=== PATIENT | female | born 1945 | race Caucasian/White ===

== ENCOUNTER 2018-03-01 22:49 | Emergency (ER) | payer OTHER, MEDICAID ==
[~2018-03-01] VITALS: Ht 154.9 cm; Wt 59.0 kg
[~2018-03-01 22:49] MED LIST: ALBUTEROL2.5 MG/31 IN; ALPRAZOLAM0.5 MG PO; AMITRIPTYLIN25 MG OR; AMITRIPTYLIN25 MG PO; AUGMENTIN875TAB PO; BENAZEPRIL5 M1 OR; BENAZEPRIL5 MG PO; BUSPIRONE15 MG PO; CIPROFLOXACN500 MG PO; DALMANE15 MG OR; DALMANE15 MG PO; DUONEB IN; FLEXERIL OR; HOME NEBULIZER; LEVOTHYROXIN25 MC1 PO; LEVOTHYROXIN25 MCG PO; LISINOPRIL/HYDR1 TA1 OR; LOPRESSOR 550 MG/TAB PO; LOPRESSOR50 MG PO; LORTAB 5 PO; LORTAB5 PO; MEDDOSEPAK PO; METOPROL TAR50 MG OR; NICOTINE T21 MG/PATC TD; PAROXETINE10 MG PO; PERCOCET 5/325M1 TAB PO; PLAVIX75 MG PO; PREDNISONE20 MG PO; PROAIR HFA IN; PYRIDIUM200 MG PO; RESTORIL15 MG PO; SIMVASTATIN20 MG OR; SIMVASTATIN20 MG PO; ULTRAM50 M1 OR; ULTRAM50 M1 PO; XANAX XR0.5 MG OR; ZITHROMAX250 MG PO; ZOCOR20 MG PO; ZPAK PO
[2018-03-01 23:34] LABS: BASO% 0 % (0-3); EOS% 0 % (0-8); HEMATOCRIT 44.7 % (37.0-47.0); HEMOGLOBIN 15.1 g/dl (12.0-16.0); IMMATURE GRANULOCYTES 3.7 % (0.0-1.0); LYMPH% 3 % (15-41); MEAN CELL VOLUME 93.5 fL CALC (80.0-100.0); MEAN CORPUSCULAR HGB 31.6 pG CALC (26.0-32.0); MEAN CORPUSCULAR HGB CONC 33.8 g/L CALC (32.0-36.0); MONO% 6 % (2-13); NEUT# 23.16 thou/uL (2.00-7.15); PLATELET COUNT 352 thou/uL (130-400); RED BLOOD COUNT 4.78 mill/uL (4.20-5.60); RED CELL DISTRI WIDTH 13.8 % (11.5-15.5)
[2018-03-01 23:42] LABS: MANUAL DIFFERENTIAL YES; NEUT% 100 % (42-76)
[2018-03-01 23:47] LABS: BILIRUBIN, TOTAL 0.5 mg/dL (0.0-1.4); TOTAL PROTEIN 6.6 g/dL (6.3-8.2)
[2018-03-01 23:50] LABS: ACT PARTIAL THROMBO TIME 28.3 SECONDS (20.0-32.5); PROTHROMBIN TIME 11.4 SECONDS (9.0-12.5)
[2018-03-01] MEDS ORDERED: LISINOPRIL20 MG PO (23:51)
[2018-03-01] MEDS ORDERED: FUROSEMIDE20 MG PO (23:52)
[2018-03-01] MEDS ORDERED: LORTAB 1010 MG PO (23:53)
[2018-03-01 23:58] LABS: ALBUMIN 3.3 g/dL (3.2-5.0); CREATININE 2.5 mg/dL (0.5-1.0); POTASSIUM 4.2 mmol/l (3.5-5.1)
[2018-03-02] LABS: BAND 4 % (0-8)
[2018-03-02 00:35] LABS: URINE BLOOD DIPSTICK NEGATIVE (NEGATIVE); URINE COLOR YELLOW; URINE GLUCOSE - DIPSTICK NEGATIVE (NEGATIVE); URINE KETONE NEGATIVE (NEGATIVE); URINE NITRITE - DIPSTICK NEGATIVE (Negative); URINE PROTEIN - DIPSTICK TRACE mg/dL (NEG-TRACE); URINE SPECIFIC GRAVITY 1.025; URINE UROBILINOGEN - DIPSTICK 0.2 E.U./dL (0.2)
[2018-03-02 00:37] LABS: URINE BILIRUBIN - DIPSTICK NEGATIVE (NEGATIVE); URINE CLARITY CLOUDY
[2018-03-02 00:42] LABS: BARBITURATES NEGATIVE (NEGATIVE); COCAINE NEGATIVE (NEGATIVE); METHADONE NEGATIVE (NEGATIVE); TETRAHYDROCANNABIONOL NEGATIVE (NEGATIVE); TRICYLIC ANTIDEPRESSANTS POSITIVE (NEGATIVE); URINE AMORPH SEDIMENT MANY hpf (NONE-FEW); URINE BACTERIA FEW hpf; URINE FINE GRAN CAST FEW lpf; URINE HYALINE CAST FEW lpf (NONE-RARE); URINE LEUK ESTERASE NEGATIVE (NEGATIVE); URINE MUCUS MANY hpf (NONE-FEW); URINE RBC 0-2 RBC/hpf (0-5); URINE SQUAMOUS EPITHELIAL CELL MODERATE EPI/hpf (0-FEW)
[2018-03-02 00:43] LABS: OXCYCODONE POSITIVE (NEGATIVE)
[2018-03-02 02:08] VITALS: BP 144/67
== END 2018-03-02 02:12 | disposition short-term general hospital (02) | DRG 379 ==
LOC: ED 22:49
PROVIDERS: Family Medicine
PROC: 0T9B70Z Drainage of Bladder with Drainage Device, Via Natural or Artificial Opening (ICD-10-PCS; principal; 2018-03-02)
PROC: 0BH17EZ Insertion of Endotracheal Airway into Trachea, Via Natural or Artificial Opening (ICD-10-PCS; 2018-03-02)
PROC: 05HM33Z Insertion of Infusion Device into Right Internal Jugular Vein, Percutaneous Approach (ICD-10-PCS; 2018-03-02)
DX: K92.2 Gastrointestinal hemorrhage, unspecified (principal); K92.1 Melena; F17.200 Nicotine dependence, unspecified, uncomplicated; N28.9 Disorder of kidney and ureter, unspecified; I10 Essential (primary) hypertension; R10.13 Epigastric pain; R11.2 Nausea with vomiting, unspecified; R19.7 Diarrhea, unspecified; I25.2 Old myocardial infarction; R00.0 Tachycardia, unspecified
CPT/HCPCS: S0164

== ENCOUNTER 2018-04-05 21:45 | Emergency (ER) | payer OTHER, MEDICAID ==
[~2018-04-05] VITALS: Ht 154.9 cm; Wt 45.0 kg
[~2018-04-05 21:45] MED LIST changes: +FUROSEMIDE20 MG PO; +LISINOPRIL20 MG PO; +LORTAB 1010 MG PO
[2018-04-05 22:52] LABS: IMMATURE GRANULOCYTES 0.4 % (0.0-1.0); MEAN CELL VOLUME 92.3 fL CALC (80.0-100.0); MEAN CORPUSCULAR HGB 29.8 pG CALC (26.0-32.0); MEAN CORPUSCULAR HGB CONC 32.2 g/L CALC (32.0-36.0); NEUT# 8.29 thou/uL (2.00-7.15); RED BLOOD COUNT 3.66 mill/uL (4.20-5.60); RED CELL DISTRI WIDTH 13.9 % (11.5-15.5)
[2018-04-05 22:53] LABS: HEMATOCRIT 33.8 % (37.0-47.0); HEMOGLOBIN 10.9 g/dl (12.0-16.0)
[2018-04-05 23:06] LABS: ALBUMIN 3.1 g/dL (3.2-5.0); ALKALINE PHOSPHATASE 115 u/l (38-126); AMYLASE < 30 u/l (30-110); BILIRUBIN, TOTAL 0.2 mg/dL (0.0-1.4); BUN 13 mg/dL (8-23); CARBON DIOXIDE 22 mmol/l (22-30); LIPASE 23 u/l (23-300); SGPT/ALT 114 u/l (11-66); SODIUM 139 mmol/l (137-146); TOTAL PROTEIN 7.3 g/dL (6.3-8.2)
[2018-04-05 23:09] LABS: ANION GAP 14 (6-22 (CALC)); BUN/CREATININE RATIO 22 (12-20 (CALC)); CHLORIDE 106 mmol/l (95-108); CREATININE 0.6 mg/dL (0.5-1.0); GFR > 60 ML/MIN (>=60 (CALC)); GFR FOR AFR.AMER. > 60 ML/MIN (>=60 (CALC)); POTASSIUM 3.1 mmol/l (3.5-5.1); SGOT/AST 39 u/l (9-36)
[2018-04-06 01:07] LABS: URINE BILIRUBIN - DIPSTICK NEGATIVE (NEGATIVE); URINE BLOOD DIPSTICK MODERATE (NEGATIVE); URINE CLARITY CLOUDY; URINE COLOR YELLOW; URINE GLUCOSE - DIPSTICK NEGATIVE (NEGATIVE); URINE KETONE NEGATIVE (NEGATIVE); URINE LEUK ESTERASE LARGE (NEGATIVE); URINE NITRITE - DIPSTICK NEGATIVE (Negative); URINE PROTEIN - DIPSTICK 30 mg/dL (NEG-TRACE); URINE SPECIFIC GRAVITY <=1.005; URINE UROBILINOGEN - DIPSTICK 0.2 E.U./dL (0.2)
[2018-04-06 01:15] LABS: URINE RBC 0-2 RBC/hpf (0-5)
[2018-04-06 01:16] LABS: URINE BACTERIA FEW hpf; URINE WBC TNTC WBC/hpf (0-5)
[2018-04-06 02:56] VITALS: BP 132/61
== END 2018-04-06 02:57 | disposition short-term general hospital (02) | DRG 690 ==
LOC: ED 21:45
PROVIDERS: Emergency Medicine
PROC: 0T9B70Z Drainage of Bladder with Drainage Device, Via Natural or Artificial Opening (ICD-10-PCS; principal; 2018-04-06)
DX: N13.6 Pyonephrosis (principal); D72.829 Elevated white blood cell count, unspecified; R10.84 Generalized abdominal pain; I10 Essential (primary) hypertension; E03.9 Hypothyroidism, unspecified; F17.210 Nicotine dependence, cigarettes, uncomplicated; I25.2 Old myocardial infarction; Z87.442 Personal history of urinary calculi
CPT/HCPCS: S0164

== ENCOUNTER 2018-05-04 11:38 | Inpatient (IN) | payer OTHER, MEDICAID ==
[~2018-05-04] VITALS: Ht 154.9 cm; Wt 44.9 kg
[2018-05-04 12:25] LABS: HEMATOCRIT 33.9 % (37.0-47.0); HEMOGLOBIN 10.6 g/dl (12.0-16.0); IMMATURE GRANULOCYTES 0.6 % (0.0-1.0); MEAN CORPUSCULAR HGB 29.7 pG CALC (26.0-32.0); MEAN CORPUSCULAR HGB CONC 31.3 g/L CALC (32.0-36.0); NEUT# 7.44 thou/uL (2.00-7.15); RED BLOOD COUNT 3.57 mill/uL (4.20-5.60); RED CELL DISTRI WIDTH 21.4 % (11.5-15.5)
[2018-05-04 12:45] LABS: ALBUMIN 3.6 g/dL (3.2-5.0); ALKALINE PHOSPHATASE 126 u/l (38-126); ANION GAP 18 (6-22 (CALC)); BILIRUBIN, TOTAL 0.3 mg/dL (0.0-1.4); BUN 14 mg/dL (8-23); BUN/CREATININE RATIO 17 (12-20 (CALC)); CARBON DIOXIDE 19 mmol/l (22-30); CHLORIDE 111 mmol/l (95-108); CREATININE 0.8 mg/dL (0.5-1.0); GFR > 60 ML/MIN (>=60 (CALC)); GFR FOR AFR.AMER. > 60 ML/MIN (>=60 (CALC)); LIPASE 97 u/l (23-300); SGOT/AST 23 u/l (9-36); SGPT/ALT 35 u/l (11-66); SODIUM 144 mmol/l (137-146)
[2018-05-04 12:50] LABS: POTASSIUM 4.1 mmol/l (3.5-5.1)
[2018-05-04 16:22] LABS: URINE BILIRUBIN - DIPSTICK NEGATIVE (NEGATIVE); URINE BLOOD DIPSTICK MODERATE (NEGATIVE); URINE COLOR YELLOW; URINE GLUCOSE - DIPSTICK NEGATIVE (NEGATIVE); URINE KETONE NEGATIVE (NEGATIVE); URINE NITRITE - DIPSTICK NEGATIVE (Negative); URINE PROTEIN - DIPSTICK NEGATIVE (NEG-TRACE); URINE UROBILINOGEN - DIPSTICK 0.2 E.U./dL (0.2)
[2018-05-04 16:24] LABS: URINE CLARITY SL CLOUDY; URINE LEUK ESTERASE LARGE (NEGATIVE)
[2018-05-04 16:28] VITALS: BP 169/77
[2018-05-04 16:28] LABS: URINE SQUAMOUS EPITHELIAL CELL FEW EPI/hpf (0-FEW); URINE WBC >100 WBC/hpf (0-5)
[2018-05-04 18:16] LABS: C. DIFFICILE TOXIN A&B NEGATIVE (NEGATIVE)
[2018-05-04 19:05] VITALS: BP 197/63
[2018-05-04 20:10] VITALS: BP 112/54
[2018-05-05] VITALS (10 sets, daily range): BP systolic 133–170; BP diastolic 59–85
[2018-05-05 05:39] LABS: HEMATOCRIT 30.9 % (37.0-47.0); HEMOGLOBIN 9.5 g/dl (12.0-16.0); IMMATURE GRANULOCYTES 0.5 % (0.0-1.0); MEAN CELL VOLUME 97.5 fL CALC (80.0-100.0); MEAN CORPUSCULAR HGB CONC 30.7 g/L CALC (32.0-36.0); NEUT# 5.09 thou/uL (2.00-7.15); RED BLOOD COUNT 3.17 mill/uL (4.20-5.60); RED CELL DISTRI WIDTH 21.4 % (11.5-15.5)
[2018-05-05 05:52] LABS: HDL CHOLESTEROL 42 mg/dL (>=40); TOTAL TRIGLYCERIDES 111 mg/dl (30-149); VLDL CHOLESTROL 22 mg/dl (0-48 (CALC))
[2018-05-05 06:01] LABS: ANION GAP 14 (6-22 (CALC)); BUN 8 mg/dL (8-23); BUN/CREATININE RATIO 13 (12-20 (CALC)); CARBON DIOXIDE 16 mmol/l (22-30); CHLORIDE 116 mmol/l (95-108); CREATININE 0.6 mg/dL (0.5-1.0); GFR > 60 ML/MIN (>=60 (CALC)); GFR FOR AFR.AMER. > 60 ML/MIN (>=60 (CALC)); MAGNESIUM 1.2 mg/dL (1.6-2.3); POTASSIUM 3.4 mmol/l (3.5-5.1); SODIUM 142 mmol/l (137-146)
[2018-05-05 06:08] LABS: CHOLESTEROL HDL RATIO 1.3 (<4.4 (CALC)); TOTAL CHOLESTEROL 54 mg/dl (0-199)
[2018-05-05] MEDS ORDERED: METOPROL TAR25 MG PO (14:25)
[2018-05-05] MEDS ORDERED: XANAX0.5 MG PO (14:30)
[2018-05-05] MEDS ORDERED: LEVOTHYROXIN25 MC1 PO (14:35)
[2018-05-05] MEDS ORDERED: FUROSEMIDE20 MG PO (14:37)
[2018-05-05] MEDS ORDERED: DALMANE15 MG PO (14:41)
[2018-05-05] MEDS ORDERED: PLAVIX75 MG PO (14:46)
[2018-05-05] MEDS ORDERED: HYDROCO/APAP1 T10 PO (14:48)
[2018-05-05] MEDS ORDERED: AMITRIPTYLIN25 MG PO (14:50)
[2018-05-05] MEDS ORDERED: ACETAMINOPHEN325 MG PO (16:56)
[2018-05-06] VITALS (10 sets, daily range): BP systolic 125–190; BP diastolic 44–80
[2018-05-06] MEDS ORDERED: PLAVIX75 MG PO (08:07)
[2018-05-06] MEDS ORDERED: LISINOPRIL20 MG PO (08:11)
[2018-05-06] MEDS ORDERED: DULCOLAX10 MG RE (10:41)
[2018-05-06] MEDS ORDERED: LORTAB 1010 MG PO (10:48)
[2018-05-06] MEDS ORDERED: MILK OF MAG2 PO (10:52)
[2018-05-06] MEDS ORDERED: NICOTINE T14 MG/241 TD (10:56)
[2018-05-06] MEDS ORDERED: ZOCOR20 M1 PO (11:00)
[2018-05-06] MEDS ORDERED: [UNRECOGNIZED DRUG - OTHER] RE (11:04)
[2018-05-07 04:46] VITALS: BP 169/67
[2018-05-07 06:20] VITALS: BP 160/71
[2018-05-07 08:06] VITALS: BP 177/93
[2018-05-07 09:37] LABS: HEMATOCRIT 30.9 % (37.0-47.0); HEMOGLOBIN 9.6 g/dl (12.0-16.0); IMMATURE GRANULOCYTES 0.6 % (0.0-5.0); MEAN CORPUSCULAR HGB 29.8 pG CALC (26.0-32.0); MEAN CORPUSCULAR HGB CONC 31.1 g/L CALC (32.0-36.0); NEUT# 4.86 thou/uL (2.00-7.15); RED BLOOD COUNT 3.22 mill/uL (4.20-5.60); RED CELL DISTRI WIDTH 21.9 % (11.5-15.5)
[2018-05-07 10:27] LABS: ANION GAP 12 (6-22 (CALC)); BUN 1 mg/dL (8-23); BUN/CREATININE RATIO 2 (12-20 (CALC)); CARBON DIOXIDE 19 mmol/l (22-30); CHLORIDE 112 mmol/l (95-108); CREATININE 0.6 mg/dL (0.5-1.0); GFR > 60 ML/MIN (>=60 (CALC)); GFR FOR AFR.AMER. > 60 ML/MIN (>=60 (CALC)); POTASSIUM 2.8 mmol/l (3.5-5.1); SODIUM 141 mmol/l (137-146)
[2018-05-07 11:02] VITALS: BP 146/70
[2018-05-07 15:00] VITALS: BP 138/64
[2018-05-07 19:41] VITALS: BP 163/62
[2018-05-08 00:15] VITALS: BP 134/65
[2018-05-08 04:20] VITALS: BP 134/64
[2018-05-08 06:12] LABS: MAGNESIUM 1.9 mg/dL (1.6-2.3); POTASSIUM 3.4 mmol/l (3.5-5.1)
[2018-05-08 08:23] VITALS: BP 168/79
[2018-05-08 11:03] VITALS: BP 163/76
[2018-05-08] MEDS ORDERED: IMODIUM2 MG PO (11:27)
[2018-05-08 15:35] VITALS: BP 163/72
[2018-05-08] MEDS ORDERED: LORTAB5 PO (15:36)
[2018-05-08 16:37] VITALS: BP 160/72
== END 2018-05-08 16:40 | disposition home health service (06) | DRG 392 ==
LOC: ED 11:38 → ED-I 14:45 → ED 15:02 → MS2 15:03
PROVIDERS: Family Medicine; Nurse Practitioner Family; ADMIT Internal Medicine; ATTEND Internal Medicine
PROC: 0T9B70Z Drainage of Bladder with Drainage Device, Via Natural or Artificial Opening (ICD-10-PCS; principal; 2018-05-05)
DX: K91.2 Postsurgical malabsorption, not elsewhere classified (principal); E86.0 Dehydration; R41.3 Other amnesia; I25.10 Atherosclerotic heart disease of native coronary artery without angina pectoris; M19.90 Unspecified osteoarthritis, unspecified site; G89.4 Chronic pain syndrome; F17.210 Nicotine dependence, cigarettes, uncomplicated; I10 Essential (primary) hypertension; R33.9 Retention of urine, unspecified; M54.5 Low back pain; E83.42 Hypomagnesemia; E87.6 Hypokalemia; I25.2 Old myocardial infarction; Y83.6 Removal of other organ (partial) (total) as the cause of abnormal reaction of the patient, or of later complication, without mention of misadventure at the time of the procedure; Z96.0 Presence of urogenital implants; Z95.5 Presence of coronary angioplasty implant and graft; Z90.49 Acquired absence of other specified parts of digestive tract
CPT/HCPCS: J3475; Q9967

== ENCOUNTER 2018-05-12 18:51 | Observation (INO) | payer OTHER, MEDICAID ==
[~2018-05-12] VITALS: Ht 154.9 cm; Wt 43.2 kg
[~2018-05-12 18:51] MED LIST changes: +ACETAMINOPHEN325 MG PO; +DULCOLAX10 MG RE; +HYDROCO/APAP1 T10 PO; +IMODIUM2 MG PO; +METOPROL TAR25 MG PO; +MILK OF MAG2 PO; +NICOTINE T14 MG/241 TD; +XANAX0.5 MG PO; +ZOCOR20 M1 PO; +[UNRECOGNIZED DRUG - OTHER] RE
[2018-05-12 19:38] LABS: IMMATURE GRANULOCYTES 0.2 % (0.0-5.0); MEAN CELL VOLUME 95.7 fL CALC (80.0-100.0); MEAN CORPUSCULAR HGB 30.2 pG CALC (26.0-32.0); MEAN CORPUSCULAR HGB CONC 31.6 g/L CALC (32.0-36.0); NEUT# 5.12 thou/uL (2.00-7.15); RED BLOOD COUNT 3.94 mill/uL (4.20-5.60); RED CELL DISTRI WIDTH 19.9 % (11.5-15.5)
[2018-05-12 19:39] LABS: HEMATOCRIT 37.7 % (37.0-47.0); HEMOGLOBIN 11.9 g/dl (12.0-16.0)
[2018-05-12 19:50] LABS: ALBUMIN 3.6 g/dL (3.2-5.0); ALKALINE PHOSPHATASE 118 u/l (38-126); AMYLASE < 30 u/l (30-110); ANION GAP 21 (6-22 (CALC)); BILIRUBIN, TOTAL 0.3 mg/dL (0.0-1.4); BUN 9 mg/dL (8-23); BUN/CREATININE RATIO 12 (12-20 (CALC)); CARBON DIOXIDE 18 mmol/l (22-30); CHLORIDE 103 mmol/l (95-108); CREATININE 0.7 mg/dL (0.5-1.0); GFR > 60 ML/MIN (>=60 (CALC)); GFR FOR AFR.AMER. > 60 ML/MIN (>=60 (CALC)); LIPASE 60 u/l (23-300); POTASSIUM 2.8 mmol/l (3.5-5.1); SGOT/AST 20 u/l (9-36); SGPT/ALT 22 u/l (11-66); SODIUM 139 mmol/l (137-146); TOTAL PROTEIN 7.6 g/dL (6.3-8.2)
[2018-05-12 20:05] LABS: URINE BILIRUBIN - DIPSTICK NEGATIVE (NEGATIVE); URINE BLOOD DIPSTICK LARGE (NEGATIVE); URINE CLARITY CLOUDY; URINE COLOR YELLOW; URINE GLUCOSE - DIPSTICK NEGATIVE (NEGATIVE); URINE KETONE NEGATIVE (NEGATIVE); URINE LEUK ESTERASE MODERATE (NEGATIVE); URINE NITRITE - DIPSTICK NEGATIVE (Negative); URINE PROTEIN - DIPSTICK 100 mg/dL (NEG-TRACE); URINE SPECIFIC GRAVITY 1.015; URINE UROBILINOGEN - DIPSTICK 0.2 E.U./dL (0.2)
[2018-05-12 20:07] LABS: URINE SQUAMOUS EPITHELIAL CELL FEW EPI/hpf (0-FEW); URINE WBC 50-100 WBC/hpf (0-5)
[2018-05-12 23:45] VITALS: BP 175/73
[2018-05-13] VITALS (8 sets, daily range): BP systolic 121–172; BP diastolic 55–75
[2018-05-13] MEDS ORDERED: HYDROCO/APAP1 T13 PO (03:31)
[2018-05-13 07:51] LABS: HEMATOCRIT 35.1 % (37.0-47.0); HEMOGLOBIN 10.8 g/dl (12.0-16.0); MEAN CELL VOLUME 99.4 fL CALC (80.0-100.0); MEAN CORPUSCULAR HGB 30.6 pG CALC (26.0-32.0); MEAN CORPUSCULAR HGB CONC 30.8 g/L CALC (32.0-36.0); RED BLOOD COUNT 3.53 mill/uL (4.20-5.60); RED CELL DISTRI WIDTH 20.7 % (11.5-15.5)
[2018-05-13 08:10] LABS: BUN 5 mg/dL (8-23); BUN/CREATININE RATIO 9 (12-20 (CALC)); CARBON DIOXIDE 15 mmol/l (22-30); CHLORIDE 114 mmol/l (95-108); CREATININE 0.6 mg/dL (0.5-1.0); GFR > 60 ML/MIN (>=60 (CALC)); GFR FOR AFR.AMER. > 60 ML/MIN (>=60 (CALC)); MAGNESIUM 1.5 mg/dL (1.6-2.3); SODIUM 141 mmol/l (137-146)
[2018-05-13 08:11] LABS: ANION GAP 16 (6-22 (CALC))
[2018-05-13 08:12] LABS: POTASSIUM 3.5 mmol/l (3.5-5.1)
[2018-05-14] VITALS (7 sets, daily range): BP systolic 108–184; BP diastolic 59–68
[2018-05-14 08:30] LABS: ANION GAP 14 (6-22 (CALC)); BUN 5 mg/dL (8-23); BUN/CREATININE RATIO 8 (12-20 (CALC)); CARBON DIOXIDE 13 mmol/l (22-30); CHLORIDE 116 mmol/l (95-108); CREATININE 0.6 mg/dL (0.5-1.0); GFR > 60 ML/MIN (>=60 (CALC)); GFR FOR AFR.AMER. > 60 ML/MIN (>=60 (CALC)); MAGNESIUM 1.9 mg/dL (1.6-2.3); POTASSIUM 3.2 mmol/l (3.5-5.1); SODIUM 139 mmol/l (137-146)
[2018-05-15] VITALS (7 sets, daily range): BP systolic 130–185; BP diastolic 58–79
[2018-05-15 05:47] LABS: HEMOGLOBIN 10.1 g/dl (12.0-16.0); MEAN CORPUSCULAR HGB 30.6 pG CALC (26.0-32.0); MEAN CORPUSCULAR HGB CONC 30.6 g/L CALC (32.0-36.0); RED BLOOD COUNT 3.3 mill/uL (4.20-5.60); RED CELL DISTRI WIDTH 20.3 % (11.5-15.5)
[2018-05-15 06:00] LABS: ANION GAP 13 (6-22 (CALC)); BUN 3 mg/dL (8-23); BUN/CREATININE RATIO 5 (12-20 (CALC)); CHLORIDE 114 mmol/l (95-108); CREATININE 0.6 mg/dL (0.5-1.0); GFR > 60 ML/MIN (>=60 (CALC)); GFR FOR AFR.AMER. > 60 ML/MIN (>=60 (CALC)); MAGNESIUM 1.7 mg/dL (1.6-2.3); POTASSIUM 3.7 mmol/l (3.5-5.1); SODIUM 140 mmol/l (137-146)
[2018-05-15 06:04] LABS: CARBON DIOXIDE 17 mmol/l (22-30)
[2018-05-16 00:20] VITALS: BP 153/67
[2018-05-16 04:55] VITALS: BP 194/65
[2018-05-16 07:18] VITALS: BP 109/75
[2018-05-16] MEDS ORDERED: METRONIDAZOL500 MG PO (12:04)
[2018-05-16] MEDS ORDERED: CIPROFLOXACN500 MG PO (12:04)
[2018-05-16] MEDS ORDERED: IMODIUM2 MG PO (12:06)
[2018-05-16] MEDS ORDERED: FLORASTOR250 M1 PO (12:06)
[2018-05-16] MEDS ORDERED: CHOLESTYRAMINE4 G1 PO (12:07)
[2018-05-16 12:20] VITALS: BP 124/55
== END 2018-05-16 13:38 | disposition home or self-care (01) | DRG 392 ==
LOC: ED 18:51 → ED-I 22:40 → ED 23:04 → MS2 23:05
PROVIDERS: Emergency Medicine; ADMIT Internal Medicine; ATTEND Internal Medicine
DX: K91.2 Postsurgical malabsorption, not elsewhere classified (principal); E87.6 Hypokalemia; E83.42 Hypomagnesemia; I10 Essential (primary) hypertension; E03.9 Hypothyroidism, unspecified; F17.210 Nicotine dependence, cigarettes, uncomplicated; R33.9 Retention of urine, unspecified; I25.10 Atherosclerotic heart disease of native coronary artery without angina pectoris; M19.90 Unspecified osteoarthritis, unspecified site; G89.4 Chronic pain syndrome; I25.2 Old myocardial infarction; Z95.5 Presence of coronary angioplasty implant and graft; Z96.0 Presence of urogenital implants
CPT/HCPCS: G0378; Q9967